=== PATIENT | female | born 1975 | race Caucasian/White ===

== ENCOUNTER → 2024-01-03 | Outpatient (CLI) | payer MEDICAID, SELFPAY ==
--- NOTE | 2024-01-03 09:44 | XR_ITS ---
Examination: PA lateral chest 2 views TECHNIQUE: Upright PA lateral chest 2 views Exam date and time: January 03, 2024 0952 hours Comparison October 06, 2015 INDICATIONS: Clinical diagnosis coccidiomycosis FINDINGS: Normal heart size Lungs are clear Moderate osteopenia IMPRESSION: No active disease
== END | disposition home or self-care (01) ==
PROVIDERS: PCP Physician Assistant Medical; Referring Provider Physician Assistant; Visit Provider Physician Assistant
DX: Z86.19 Personal history of other infectious and parasitic diseases (principal)
CPT/HCPCS: 71046

== ENCOUNTER 2024-01-13 09:03 | Outpatient (AMB) | payer MEDICAID, SELFPAY ==
[2024-01-13 09:42] VITALS: BP 116/81; PULSE 72; RESP 18; TEMP 36.3; O2SAT 96; BMI 38.2
--- NOTE | 2024-01-13 09:42 | PD.ORTHCLVIS ---
Vital signs 01/13/24 09:42 Height 1.63 m Height Method Stated Weight 101.661 kg Weight Measurement Method Standing Scale BMI 38.2 BP 116/81 Blood Pressure Source Automatic Cuff Blood Pressure Location Right Upper Arm Position Sitting Respiration 18 Pulse 72 Pulse Source Monitor Temp 97.4 F Temp Source Temporal Artery Scan Pulse Oximetry (%) 96 Oxygen Delivery Method Room Air Med/Allergies Allergies & Medications Allergies coffee (Coffea arabica) Allergy (Intermediate, Verified 01/13/24 09:45) Gastrointestinal Upset furosemide [From Lasix] Allergy (Intermediate, Verified 01/13/24 09:45) Hypertension milk Allergy (Intermediate, Verified 01/13/24 09:45) Gastrointestinal Upset nitrofurantoin Allergy (Mild, Verified 01/13/24 09:45) VOMIT,LOC BACTRIM Allergy (Uncoded 01/13/24 09:45) Medication Reconciliation diphenhydramine HCl 50 mg capsule 50 mg PO QID #20 caps 11/07/18 [Rx Confirmed 01/13/24] famotidine 20 mg tablet (Pepcid) 20 mg PO BID #10 tabs 11/07/18 [Rx Confirmed 01/13/24] methylprednisolone 4 mg tablets in a dose pack (Medrol (Guido)) 4 mg PO QDAY #21 tabs 11/07/18 [Rx Confirmed 01/13/24] semaglutide 0.25 mg or 0.5 mg (2 mg/3 mL) subcutaneous pen injector (Ozempic) 0.25 mg subcut QWEEK 09/09/23 [History Confirmed 01/13/24] Subjective Visit Visit for: follow up visit, knee and injections Immunization / Flu Flu Vaccine in the Last 12 Months: No Flu Vaccine Exclusion Criteria: No Exclusion Criteria History of Present Illness Chief complaint: F/U KNEE INJECTIONS Date of 1st surgery (if applicable): MAY 2021 Christel is a pleasant 48-year-old female with bilateral knee pain worse on the right. She has a history of rheumatoid arthritis on Enbrel and methotrexate. She has had right knee pain for over 3 years. She did have a prior meniscectomy in May 2021. She was told she was [id number] at that time. She has lost 60 pounds recently. She is also been injected every 3 months with cortisone for the last several years. The last injection was 3 months ago Personal History Occupation: UNEMPLOYED Hobbies: GYM Pain Pain level (0-10): 6 Pain duration: ALL DAY Pain location: inside (medial), outside (lateral), anterior and posterior Pain quality: sharp, dull and aching Pain timing: increases with activity Associated signs & symptoms: weakness Ambulatory data Ambulatory device: none Treatments Number of previous injections: 3 Improvement with previous injections: Yes Improvement with PT: No Improvement with NSAIDS: no Review of Systems Review of Systems: All systems negative unless otherwise noted in HPI. Exam Exam Patient is in no acute distress and is cooperative with the examination today. Breathing is nonlabored. In no respiratory distress. Bilateral extremities were evaluated and demonstrates sensation intact to light touch. Palpable pedal pulses are present. No significant edema is present. Bilateral hips were examined. The patient has no pain with log roll of the hips. Internal rotation to 30 degrees and external rotation to 30 degrees is painless. Negative FADIR. The left knee was examined. The left knee is in [varus] alignment. Range of motion from [0-115] degrees. Knee is stable to varus and valgus as well as AP translation with <5mm. Patient has a [negative] McMurrays. There is [no] pain with patellofemoral compression and [no] crepitus noted. The knee is [tender] to palpation [medially]. The right knee was also examined. The right knee is in [varus] alignment. Range of motion from [0-120] degrees. Knee is stable to varus and valgus as well as AP translation with <5mm. Patient has a [negative] McMurrays. There is [no] pain with patellofemoral compression and [no] crepitus noted. The knee is [tender] to palpation [medially]. Bilateral knee x-rays were reviewed. This demonstrates severe arthritis on the right side. There is valgus arthritis and complete joint space loss laterally Assessment and Plan Problem List (1) Bilateral primary osteoarthritis of knee: Status: Acute Plan: Christel is a pleasant 48-year-old female with bilateral knee pain. She does have history of rheumatoid arthritis. Recommend knee cortisone injection as patient would like to proceed with conservative treatment at this time. The risks and benefits of the procedure were reviewed with the patient and patient gave verbal consent to continue with the procedure. Procedure: performed by Dr. Hurtado Using sterile technique the Right knee was thoroughly prepped with alcohol, and approximately 1 cc of Kenalog 40 mg/mL and 4 cc of 1% lidocaine was injected without resistance into the medial tibial femoral joint space. The patient tolerated the procedure. Office Procedures GNS Level of Care Nursing/Assessment Patient Status: Established Patient Nursing Assessment/Reassesment: Medication Reconciliation, Update PMH in EMR and Vital Signs Coordination of Care: Complex Care and Chronic Disease 1-5, Education Complex Pt/Fam, Consent,records obtained, informed consent, Results/Orders obtained and Staff clarify orders Established Patient Charge Established Patient Point Assignment: 95 Established Patient Point Charge: EP Level 3 (80-115) Surgical Proc/IM SQ injection Major Surgical Procedure: Yes Medication Given Medication Given Medication Given: Yes Documented Dose Given: 4 Route: Infiitration Medication Given Medication Given Medication Given: Yes Documented Dose Given: 1 Route: Infiitration Office Meds Xylocaine 10 mg/mL (1 %) injection solution Performing Provider: Norm Hurtado MD Performing Location: [facility] Administered by: Norm Hurtado MD on 01/13/24 12:07 Dose Route Admin Location Dispensed Lot Number Expiration Date [facility] Ticket Machine Operator 20 mL Infiltration 20 mL triamcinolone acetonide 40 mg/mL suspension for injection Performing Provider: Norm Hurtado MD Performing Location: [facility] Administered by: Norm Hurtado MD on 01/13/24 12:07 Dose Route Admin Location Dispensed Lot Number Expiration Date [place] Ticket Machine Operator 40 mg intra-articular 1 mL [id number] [employer] Past Medical History Past Medical History Have you ever been diagnosed with any of the following: Cardiology Problems Congestive Heart Failure: No Respiratory Problems Chronic Obstructive Pulmonary Disease (COPD): No Smoking: No Smoking Exposure: No Genital/Urinary Problems Renal Disease: No Endocrine Problems Diabetes Mellitus Type 1: No Diabetes Mellitus Type 2: No
== END 2024-01-13 10:25 | disposition home or self-care (01) ==
PROVIDERS: PCP Physician Assistant Medical; Referring Provider Physician Assistant Medical; Supervising Provider Orthopaedic Surgery Adult Reconstructive Orthopaedic Surgery; Visit Provider Orthopaedic Surgery Adult Reconstructive Orthopaedic Surgery
DX: M17.0 Bilateral primary osteoarthritis of knee (principal)
CPT/HCPCS: 20610; 99213; J3301; J3490; G0463

== ENCOUNTER 2024-04-13 09:08 | Outpatient (AMB) | payer MEDICAID, SELFPAY ==
--- NOTE | 2024-04-13 09:13 | ORTHONT_ITS ---
Vital signs 04/13/24 09:15 Height 1.63 m Height Method Stated Weight 106.311 kg Weight Measurement Method Standing Scale BMI 40.0 BP 110/78 Blood Pressure Source Automatic Cuff Blood Pressure Location Left Upper Arm Position Sitting Respiration 18 Pulse 94 Pulse Source Monitor Temp 97.6 F Temp Source Temporal Artery Scan Pulse Oximetry (%) 96 Oxygen Delivery Method Room Air Med/Allergies Allergies & Medications Allergies coffee (Coffea arabica) Allergy (Intermediate, Verified 04/13/24 09:15) Gastrointestinal Upset furosemide (From Lasix) Allergy (Intermediate, Verified 04/13/24 09:15) Hypertension milk Allergy (Intermediate, Verified 04/13/24 09:15) Gastrointestinal Upset nitrofurantoin Allergy (Mild, Verified 04/13/24 09:15) VOMIT,LOC BACTRIM Allergy (Uncoded 04/13/24 09:15) Medication Reconciliation diphenhydramine HCl 50 mg capsule 50 mg PO QID #20 caps 11/07/18 [Rx Confirmed 04/13/24] famotidine 20 mg tablet (Pepcid) 20 mg PO BID #10 tabs 11/07/18 [Rx Confirmed 04/13/24] methylprednisolone 4 mg tablets in a dose pack (Medrol (Guido)) 4 mg PO QDAY #21 tabs 11/07/18 [Rx Confirmed 04/13/24] semaglutide 0.25 mg or 0.5 mg (2 mg/3 mL) subcutaneous pen injector (Ozempic) 0.25 mg subcut QWEEK 09/09/23 [History Confirmed 04/13/24] Exam Exam Patient is in no acute distress and is cooperative with the examination today. Breathing is nonlabored. In no respiratory distress. Bilateral extremities were evaluated and demonstrates sensation intact to light touch. Palpable pedal pulses are present. No significant edema is present. Bilateral hips were examined. The patient has no pain with log roll of the hips. Internal rotation to 30 degrees and external rotation to 30 degrees is painless. Negative FADIR. The left knee was examined. The left knee is in [varus] alignment. Range of motion from [0-115] degrees. Knee is stable to varus and valgus as well as AP translation with <5mm. Patient has a [negative] McMurrays. There is [no] pain with patellofemoral compression and [no] crepitus noted. The knee is [tender] to palpation [medially]. The right knee was also examined. The right knee is in [varus] alignment. Range of motion from [0-120] degrees. Knee is stable to varus and valgus as well as AP translation with <5mm. Patient has a [negative] McMurrays. There is [no] pain with patellofemoral compression and [no] crepitus noted. The knee is [tender] to palpation [medially]. Bilateral knee x-rays were reviewed. This demonstrates severe arthritis on the right side. There is valgus arthritis and complete joint space loss laterally Assessment and Plan Problem List (1) Bilateral primary osteoarthritis of knee: Status: Acute Plan: Christel is a pleasant 48-year-old female with bilateral knee pain. She does have history of rheumatoid arthritis. Recommend knee cortisone injection as patient would like to proceed with conservative treatment at this time. The risks and benefits of the procedure were reviewed with the patient and patient gave verbal consent to continue with the procedure. Procedure: performed by Dr. Hurtado Using sterile technique the Right knee was thoroughly prepped with alcohol, and approximately 1 cc of Kenalog 40 mg/mL and 4 cc of 1% lidocaine was injected without resistance into the medial tibial femoral joint space. The patient tolerated the procedure. Office Procedures GNS Level of Care Nursing/Assessment Patient Status: Established Patient Nursing Assessment/Reassesment: Medication Reconciliation, Update PMH in EMR and Vital Signs Coordination of Care: Complex Care and Chronic Disease 1-5, Education Complex Pt/Fam, Consent,records obtained, informed consent, Results/Orders obtained and Staff clarify orders Established Patient Charge Established Patient Point Assignment: 95 Established Patient Point Charge: EP Level 3 (80-115) Surgical Proc/IM SQ injection Major Surgical Procedure: Yes (KNEE INJECTION) Medication Given Medication Given Medication Given: Yes Documented Dose Given: 4 Route: Infiitration Office Meds Xylocaine 10 mg/mL (1 %) injection solution Performing Provider: Norm Hurtado MD Performing Location: [facility] Administered by: Norm Hurtado MD on 04/13/24 09:33 Dose Route Admin Location Dispensed Lot Number Expiration Date [facility] Manager Game 20 mL Infiltration 20 mL [id number] 08/07/27 79647-497-55 [facility] triamcinolone acetonide 40 mg/mL suspension for injection Performing Provider: Norm Hurtado MD Performing Location: [facility] Administered by: Norm Hurtado MD on 04/13/24 09:33 Dose Route Admin Location Dispensed Lot Number Expiration Date [facility] Manager Game 40 mg Infiltration KNEE 1 mL [id number] 07/06/25 4783-6679-06 [employer] MA Intake Visit Data Collection New Patient or Established: Established Patient (seen at [facility] within 3 years) Reason for Visit:: 3 MTH F/U RIGHT KNEE INJ Seen by Clinical Staff ONLY (RN/MA): No Verbal consent obtained for Telemed visit?: No Amusement Machine Mechanic Required: No PCP or OBGYN visit in last 3 months: Yes Hx Now: No Do You Feel Safe at Home: Yes Authorities Contacted: N/A Questionairres Past Medical History Past Medical History Have you ever been diagnosed with any of the following: Cardiology Problems Congestive Heart Failure: No Respiratory Problems Chronic Obstructive Pulmonary Disease (COPD): No Smoking: No Smoking Exposure: No Genital/Urinary Problems Renal Disease: No Endocrine Problems Diabetes Mellitus Type 1: No Diabetes Mellitus Type 2: No Subjective Visit Visit for: follow up visit, knee (RIGHT) and injections Immunization / Flu Flu Vaccine in the Last 12 Months: No Flu Vaccine Exclusion Criteria: No Exclusion Criteria History of Present Illness Chief complaint: Right knee pain Patient is a 49-year-old female with bilateral knee pain worse on the right. The last injections of 1 was 3 weeks ago. She would like new injections today of the right knee Pain Pain level (0-10): 7 Pain duration: COMES AND GOES Pain location: inside (medial) and anterior Pain quality: dull and aching Pain timing: increases with activity Ambulatory data Ambulatory device: none Treatments Improvement with previous injections: Yes Improvement with PT: No Improvement with NSAIDS: no Review of Systems Review of Systems: All systems negative unless otherwise noted in HPI.
--- NOTE | 2024-04-13 09:13 | ORTHONT_ITS ---
Vital signs 04/13/24 09:15 Height 1.63 m Height Method Stated Weight 106.311 kg Weight Measurement Method Standing Scale BMI 40.0 BP 110/78 Blood Pressure Source Automatic Cuff Blood Pressure Location Left Upper Arm Position Sitting Respiration 18 Pulse 94 Pulse Source Monitor Temp 97.6 F Temp Source Temporal Artery Scan Pulse Oximetry (%) 96 Oxygen Delivery Method Room Air Med/Allergies Allergies & Medications Allergies coffee (Coffea arabica) Allergy (Intermediate, Verified 04/13/24 09:15) Gastrointestinal Upset furosemide (From Lasix) Allergy (Intermediate, Verified 04/13/24 09:15) Hypertension milk Allergy (Intermediate, Verified 04/13/24 09:15) Gastrointestinal Upset nitrofurantoin Allergy (Mild, Verified 04/13/24 09:15) VOMIT,LOC BACTRIM Allergy (Uncoded 04/13/24 09:15) Medication Reconciliation diphenhydramine HCl 50 mg capsule 50 mg PO QID #20 caps 11/07/18 [Rx Confirmed 04/13/24] famotidine 20 mg tablet (Pepcid) 20 mg PO BID #10 tabs 11/07/18 [Rx Confirmed 04/13/24] methylprednisolone 4 mg tablets in a dose pack (Medrol (Guido)) 4 mg PO QDAY #21 tabs 11/07/18 [Rx Confirmed 04/13/24] semaglutide 0.25 mg or 0.5 mg (2 mg/3 mL) subcutaneous pen injector (Ozempic) 0.25 mg subcut QWEEK 09/09/23 [History Confirmed 04/13/24] Exam Exam Patient is in no acute distress and is cooperative with the examination today. Breathing is nonlabored. In no respiratory distress. Bilateral extremities were evaluated and demonstrates sensation intact to light touch. Palpable pedal pulses are present. No significant edema is present. Bilateral hips were examined. The patient has no pain with log roll of the hips. Internal rotation to 30 degrees and external rotation to 30 degrees is painless. Negative FADIR. The left knee was examined. The left knee is in [varus] alignment. Range of motion from [0-115] degrees. Knee is stable to varus and valgus as well as AP translation with <5mm. Patient has a [negative] McMurrays. There is [no] pain with patellofemoral compression and [no] crepitus noted. The knee is [tender] to palpation [medially]. The right knee was also examined. The right knee is in [varus] alignment. Range of motion from [0-120] degrees. Knee is stable to varus and valgus as well as AP translation with <5mm. Patient has a [negative] McMurrays. There is [no] pain with patellofemoral compression and [no] crepitus noted. The knee is [tender] to palpation [medially]. Bilateral knee x-rays were reviewed. This demonstrates severe arthritis on the right side. There is valgus arthritis and complete joint space loss laterally Assessment and Plan Problem List (1) Bilateral primary osteoarthritis of knee: Status: Acute Plan: Christel is a pleasant 48-year-old female with bilateral knee pain. She does have history of rheumatoid arthritis. Recommend knee cortisone injection as patient would like to proceed with conservative treatment at this time. The risks and benefits of the procedure were reviewed with the patient and patient gave verbal consent to continue with the procedure. Procedure: performed by Dr. Hurtado Using sterile technique the Right knee was thoroughly prepped with alcohol, and approximately 1 cc of Kenalog 40 mg/mL and 4 cc of 1% lidocaine was injected without resistance into the medial tibial femoral joint space. The patient tolerated the procedure. Office Procedures GNS Level of Care Nursing/Assessment Patient Status: Established Patient Nursing Assessment/Reassesment: Medication Reconciliation, Update PMH in EMR and Vital Signs Coordination of Care: Complex Care and Chronic Disease 1-5, Education Complex Pt/Fam, Consent,records obtained, informed consent, Results/Orders obtained and Staff clarify orders Established Patient Charge Established Patient Point Assignment: 95 Established Patient Point Charge: EP Level 3 (80-115) Surgical Proc/IM SQ injection Major Surgical Procedure: Yes (KNEE INJECTION) Medication Given Medication Given Medication Given: Yes Documented Dose Given: 4 Route: Infiitration Office Meds Xylocaine 10 mg/mL (1 %) injection solution Performing Provider: Norm Hurtado MD Performing Location: [facility] Administered by: Norm Hurtado MD on 04/13/24 09:33 Dose Route Admin Location Dispensed Lot Number Expiration Date [facility] Communications Scientist 20 mL Infiltration 20 mL [id number] 08/07/27 83587-881-84 [facility] triamcinolone acetonide 40 mg/mL suspension for injection Performing Provider: Norm Hurtado MD Performing Location: [facility] Administered by: Norm Hurtado MD on 04/13/24 09:33 Dose Route Admin Location Dispensed Lot Number Expiration Date [facility] Communications Scientist 40 mg Infiltration KNEE 1 mL [id number] 07/06/25 1360-5997-90 [employer] Questionairres Past Medical History Past Medical History Have you ever been diagnosed with any of the following: Cardiology Problems Congestive Heart Failure: No Respiratory Problems Chronic Obstructive Pulmonary Disease (COPD): No Smoking: No Smoking Exposure: No Genital/Urinary Problems Renal Disease: No Endocrine Problems Diabetes Mellitus Type 1: No Diabetes Mellitus Type 2: No Subjective Immunization / Flu Flu Vaccine in the Last 12 Months: Yes Flu Vaccine Exclusion Criteria: Already Received History of Present Illness Chief complaint: Right knee pain Patient is a 49-year-old female with bilateral knee pain worse on the right. The last injections of 1 was 3 weeks ago. She would like new injections today of the right knee Review of Systems Review of Systems: All systems negative unless otherwise noted in HPI.
[2024-04-13 09:15] VITALS: BP 110/78; PULSE 94; RESP 18; TEMP 36.4; O2SAT 96; BMI 40.0
== END 2024-04-13 09:25 | disposition home or self-care (01) ==
LOC: HODSRG 09:08
PROVIDERS: PCP Physician Assistant Medical; Referring Provider Physician Assistant Medical; Supervising Provider Orthopaedic Surgery Adult Reconstructive Orthopaedic Surgery; Visit Provider Orthopaedic Surgery Adult Reconstructive Orthopaedic Surgery
DX: M25.561 Pain in right knee (principal); M17.0 Bilateral primary osteoarthritis of knee; M25.562 Pain in left knee
CPT/HCPCS: 20610; 99213; J3301; J3490; G0463

== ENCOUNTER 2024-07-17 08:48 | Outpatient (AMB) | payer MEDICAID, SELFPAY ==
[2024-07-17 08:57] VITALS: BP 116/80; PULSE 89; RESP 18; TEMP 36.8; O2SAT 99; BMI 40.0
--- NOTE | 2024-07-17 08:57 | ORTHONT_ITS ---
Vital signs 07/17/24 08:57 Height 1.63 m Height Method Stated Weight 106.339 kg Weight Measurement Method Standing Scale BMI 40.0 BP 116/80 Blood Pressure Source Automatic Cuff Blood Pressure Location Right Upper Arm Position Sitting Respiration 18 Pulse 89 Pulse Source Monitor Temp 98.2 F Temp Source Temporal Artery Scan Pulse Oximetry (%) 99 Oxygen Delivery Method Room Air Med/Allergies Allergies & Medications Allergies coffee (Coffea arabica) Allergy (Intermediate, Verified 07/17/24 08:57) Gastrointestinal Upset furosemide (From Lasix) Allergy (Intermediate, Verified 07/17/24 08:57) Hypertension milk Allergy (Intermediate, Verified 07/17/24 08:57) Gastrointestinal Upset nitrofurantoin Allergy (Mild, Verified 07/17/24 08:57) VOMIT,LOC BACTRIM Allergy (Uncoded 07/17/24 08:57) Medication Reconciliation diphenhydramine HCl 50 mg capsule 50 mg PO QID #20 caps 11/07/18 [Rx Confirmed 07/17/24] famotidine 20 mg tablet (Pepcid) 20 mg PO BID #10 tabs 11/07/18 [Rx Confirmed ] methylprednisolone 4 mg tablets in a dose pack (Medrol (Guido)) 4 mg PO QDAY #21 tabs 11/07/18 [Rx Confirmed 07/17/24] semaglutide 0.25 mg or 0.5 mg (2 mg/3 mL) subcutaneous pen injector (Ozempic) 0.25 mg subcut QWEEK 09/09/23 [History Confirmed 07/17/24] Exam Exam Patient is in no acute distress and is cooperative with the examination today. Breathing is nonlabored. In no respiratory distress. Bilateral extremities were evaluated and demonstrates sensation intact to light touch. Palpable pedal pulses are present. No significant edema is present. Bilateral hips were examined. The patient has no pain with log roll of the hips. Internal rotation to 30 degrees and external rotation to 30 degrees is painless. Negative FADIR. The left knee was examined. The left knee is in [varus] alignment. Range of motion from [0-115] degrees. Knee is stable to varus and valgus as well as AP translation with <5mm. Patient has a [negative] McMurrays. There is [no] pain with patellofemoral compression and [no] crepitus noted. The knee is [tender] to palpation [medially]. The right knee was also examined. The right knee is in [varus] alignment. Range of motion from [0-120] degrees. Knee is stable to varus and valgus as well as AP translation with <5mm. Patient has a [negative] McMurrays. There is [no] pain with patellofemoral compression and [no] crepitus noted. The knee is [tender] to palpation [medially]. Bilateral knee x-rays were reviewed. This demonstrates severe arthritis on the right side. There is valgus arthritis and complete joint space loss laterally Assessment and Plan Problem List (1) Bilateral primary osteoarthritis of knee: Status: Acute Plan: Christel is a pleasant 48-year-old female with bilateral knee pain. She does have history of rheumatoid arthritis. Recommend knee cortisone injection as patient would like to proceed with conservative treatment at this time. The risks and benefits of the procedure were reviewed with the patient and patient gave verbal consent to continue with the procedure. Procedure: performed by Dr. Hurtado Using sterile technique the Right knee was thoroughly prepped with alcohol, and approximately 1 cc of Kenalog 40 mg/mL and 4 cc of 1% lidocaine was injected without resistance into the medial tibial femoral joint space. The patient tolerated the procedure. Office Procedures GNS Level of Care Nursing/Assessment Patient Status: Established Patient Nursing Assessment/Reassesment: Medication Reconciliation, Update PMH in EMR and Vital Signs Coordination of Care: Complex Care and Chronic Disease 1-5, Education Complex Pt/Fam, Consent,records obtained, informed consent, Results/Orders obtained and Staff clarify orders Established Patient Charge Established Patient Point Assignment: 95 Established Patient Point Charge: EP Level 3 (80-115) Surgical Proc/IM SQ injection Major Surgical Procedure: Yes (KNEE INJECTION ) Medication Given Medication Given Medication Given: Yes Documented Dose Given: 4 Route: Infiitration Medication Given Medication Given Medication Given: Yes Documented Dose Given: 1 Route: Infiitration Office Meds Xylocaine 10 mg/mL (1 %) injection solution Performing Provider: Norm Hurtado MD Performing Location: [facility] Administered by: Norm Hurtado MD on 07/17/24 09:24 Dose Route Admin Location Dispensed Lot Number Expiration Date [facility] [place] Safety Assistant 20 mL Infiltration KNEE 20 mL [id number] 05/09/27 67476-741-96 MICHAEL ROBLEDO triamcinolone acetonide 40 mg/mL suspension for injection Performing Provider: Norm Hurtado MD Performing Location: [facility] Administered by: Norm Hurtado MD on 07/17/24 09:24 Dose Route Admin Location Dispensed Lot Number Expiration Date [employer] Safety Assistant 40 mg intra-articular KNEE 1 mL [id number] 08/07/25 30228-626-03 ALIX SEGOVIA MA Intake Visit Data Collection New Patient or Established: Established Patient (seen at [facility] within 3 years) Reason for Visit:: 3 MONTH KNEE INJECTION Seen by Clinical Staff ONLY (RN/MA): No Verbal consent obtained for Telemed visit?: No Director Title Required: No PCP or OBGYN visit in last 3 months: Yes Hx Now: No Do You Feel Safe at Home: Yes Authorities Contacted: N/A Questionairres Past Medical History Past Medical History Have you ever been diagnosed with any of the following: Cardiology Problems Congestive Heart Failure: No Respiratory Problems Chronic Obstructive Pulmonary Disease (COPD): No Smoking: No Smoking Exposure: No Genital/Urinary Problems Renal Disease: No Endocrine Problems Diabetes Mellitus Type 1: No Diabetes Mellitus Type 2: No Subjective Visit Visit for: follow up visit, knee and injections Immunization / Flu Flu Vaccine in the Last 12 Months: No Flu Vaccine Exclusion Criteria: No Exclusion Criteria History of Present Illness Chief complaint: 3 MONTH F/U KNEE INJECTION Patient is a 49-year-old female with bilateral knee pain worse on the right. The last injection was 3 months ago. She would like new injections today of the right knee Personal History Red flag PMH: BMI BMI Counceling provided: Yes Pain Pain level (0-10): 7 Pain duration: ALL DAY Pain location: outside (lateral), anterior and posterior Pain quality: sharp, dull and aching Pain timing: increases with activity Associated signs & symptoms: numbness and stiffness Ambulatory data Ambulatory device: none Treatments Improvement with previous injections: Yes Improvement with PT: No Improvement with NSAIDS: no Review of Systems Review of Systems: All systems negative unless otherwise noted in HPI.
== END 2024-07-17 09:23 | disposition home or self-care (01) ==
LOC: HODSRG 08:48
PROVIDERS: PCP Physician Assistant Medical; Referring Provider Physician Assistant Medical; Supervising Provider Orthopaedic Surgery Adult Reconstructive Orthopaedic Surgery; Visit Provider Orthopaedic Surgery Adult Reconstructive Orthopaedic Surgery
DX: M17.0 Bilateral primary osteoarthritis of knee (principal); M25.562 Pain in left knee; M25.561 Pain in right knee
CPT/HCPCS: 20610; 99213; J3301; J3490; G0463

== ENCOUNTER 2024-10-16 13:45 | Outpatient (AMB) | payer MEDICAID, SELFPAY ==
[2024-10-16 14:03] VITALS: BP 108/23; PULSE 79; RESP 18; TEMP 36.6; O2SAT 97; BMI 38.9
--- NOTE | 2024-10-16 14:03 | ORTHONT_ITS ---
Vital signs 10/16/24 14:03 Height 1.63 m Height Method Stated Weight 103.476 kg Weight Measurement Method Standing Scale BMI 38.9 BP 108/23 L Blood Pressure Source Automatic Cuff Blood Pressure Location Right Upper Arm Position Sitting Respiration 18 Pulse 79 Pulse Source Monitor Temp 97.8 F Temp Source Temporal Artery Scan Pulse Oximetry (%) 97 Oxygen Delivery Method Room Air Med/Allergies Allergies & Medications Allergies coffee (Coffea arabica) Allergy (Intermediate, Verified 10/16/24 14:03) Gastrointestinal Upset furosemide (From Lasix) Allergy (Intermediate, Verified 10/16/24 14:03) Hypertension milk Allergy (Intermediate, Verified 10/16/24 14:03) Gastrointestinal Upset nitrofurantoin Allergy (Mild, Verified 10/16/24 14:03) VOMIT,LOC BACTRIM Allergy (Uncoded 10/16/24 14:03) Medication Reconciliation diphenhydramine HCl 50 mg capsule 50 mg PO QID #20 caps 11/07/18 [Rx Confirmed 10/16/24] famotidine 20 mg tablet (Pepcid) 20 mg PO BID #10 tabs 11/07/18 [Rx Confirmed 10/16/24] methylprednisolone 4 mg tablets in a dose pack (Medrol (Guido)) 4 mg PO QDAY #21 tabs 11/07/18 [Rx Confirmed 10/16/24] semaglutide 0.25 mg or 0.5 mg (2 mg/3 mL) subcutaneous pen injector (Ozempic) 0.25 mg subcut QWEEK 09/09/23 [History Confirmed 10/16/24] Exam Exam Patient is in no acute distress and is cooperative with the examination today. Breathing is nonlabored. In no respiratory distress. Bilateral extremities were evaluated and demonstrates sensation intact to light touch. Palpable pedal pulses are present. No significant edema is present. Bilateral hips were examined. The patient has no pain with log roll of the hips. Internal rotation to 30 degrees and external rotation to 30 degrees is painless. Negative FADIR. The left knee was examined. The left knee is in [varus] alignment. Range of motion from [0-115] degrees. Knee is stable to varus and valgus as well as AP translation with <5mm. Patient has a [negative] McMurrays. There is [no] pain with patellofemoral compression and [no] crepitus noted. The knee is [tender] to palpation [medially]. The right knee was also examined. The right knee is in [varus] alignment. Range of motion from [0-120] degrees. Knee is stable to varus and valgus as well as AP translation with <5mm. Patient has a [negative] McMurrays. There is [no] pain with patellofemoral compression and [no] crepitus noted. The knee is [tender] to palpation [medially]. Bilateral knee x-rays were reviewed. This demonstrates severe arthritis on the right side. There is valgus arthritis and complete joint space loss laterally Assessment and Plan Problem List (1) Bilateral primary osteoarthritis of knee: Status: Acute Plan: Christel is a pleasant 49-year-old female with bilateral knee pain. She does have history of rheumatoid arthritis. For the right knee, she has failed conservative treatment and has severe valgus arthritis. We thus discussed total knee replacement as a reasonable option. For the left side, she would like a cortisone injection. She has had over 6 injections and has failed conservative treatment and thus we will proceed with a right total knee replacement Recommend knee cortisone injection as patient would like to proceed with conservative treatment at this time. The risks and benefits of the procedure were reviewed with the patient and patient gave verbal consent to continue with the procedure. Procedure: performed by Dr. Hurtado Using sterile technique the left knee was thoroughly prepped with alcohol, and approximately 1 cc of Depo-Medrol 80mg/mL and 4 cc of 0.2% ropivacaine was injected without resistance into the medial tibial femoral joint space. The patient tolerated the procedure. The nature and purpose of the total knee replacement, alternative method(s) of treatment, the material risks involved, and the possibility of complications were fully explained to the patient. The patient does NOT have any of the following contraindications to TKA: - Active infection of the knee joint, OR - Active systemic bacteremia, OR - Active skin infection or open wound at surgical site, OR - Neuropathic arthritis, OR - Severe, rapidly progressive neurological disease, OR - Severe medical condition that makes risks of surgery outweigh the potential benefit The patient was told the most common risks and complications associated with a total knee replacement include, but are not limited to: blood clots in the leg, fatal pulmonary embolism, dislocation of the prosthesis, intraoperative and postoperative fractures of the femur or tibia, infection, failure of the prosthesis or grafting materials, complications from anesthesia, reactions to blood transfusions, postoperative leg length inequality, instability of the knee replacement, nerve damage or injury, vascular injury, delayed wound healing, infection, other injury or even . In addition, there are risks associated with anesthesia given during this operation. Also, the patient was told that after undergoing a total knee replacement there may still be persistent pain or disability. The patient was informed that the success of this operation in part depends upon the mechanical devices which are going to be implanted and that these devices can fail or malfunction, and may need to be repaired or replaced and there are no guarantees as to the longevity of this device or its parts and that it or its parts could fail prematurely. The patient was also notified that during the course of surgery, there may be a need to use bone graft from donors, and that any bone graft used will be carefully screened for communicable diseases, including AIDS, hepatitis, Abdi-Creutzfeldt, or other diseases, but despite the screening procedures, there is a small chance that they could contract one of these diseases. Finally, the patient was asked to follow completely and fully with all advice and recommended treatments, and that recovery and ultimate outcome are affected by their compliance with recommended treatment. We discussed the risks, benefits and treatment alternatives, and the patient is interested in proceeding with surgery. We will try to set this up as expeditiously as possible. Office Procedures GNS Level of Care Nursing/Assessment Patient Status: Established Patient Nursing Assessment/Reassesment: Medication Reconciliation, Update PMH in EMR and Vital Signs Coordination of Care: Complex Care and Chronic Disease 1-5, Education Complex Pt/Fam, Consent,records obtained, informed consent, Results/Orders obtained and Staff clarify orders Established Patient Charge Established Patient Point Assignment: 95 Established Patient Point Charge: EP Level 3 (80-115) Surgical Proc/IM SQ injection Major Surgical Procedure: Yes (KNEE INJECTION) Medication Given Medication Given Medication Given: Yes Documented Dose Given: 1 Route: Infiitration Medication Given Medication Given Medication Given: Yes Documented Dose Given: 4 Route: Infiitration Office Meds methylprednisolone acetate 80 mg/mL suspension for injection Performing Provider: Norm Hurtado MD Performing Location: [facility] Administered by: Norm Hurtado MD on 10/16/24 15:33 Dose Route Admin Location Dispensed Lot Number Expiration Date Pack age [facility] Security Escort 80 mg intra-articular 1 mL [id number] 07/06/26 [address]-3 7 [id number] [employer] ropivacaine (PF) 2 mg/mL (0.2 %) injection solution Performing Provider: Norm Hurtado MD Performing Location: [facility] Administered by: Norm Hurtado MD on 10/16/24 15:33 Dose Route Admin Location Dispensed Lot Number Expiration Date Pack age [facility] Security Escort 20 mL Infiltration 20 mL [id number] 03/08/27 41328-383-50 [id number] [facility] Intake Visit Data Collection New Patient or Established: Established Patient (seen at [facility] within 3 years) Reason for Visit:: 3 MONTH KNEE INJECTIONS Seen by Clinical Staff ONLY (RN/MA): No Verbal consent obtained for Telemed visit?: No Spring Former Machine Required: No PCP or OBGYN visit in last 3 months: Yes Hx Now: No Do You Feel Safe at Home: Yes Authorities Contacted: N/A Questionairres Past Medical History Past Medical History Have you ever been diagnosed with any of the following: Cardiology Problems Congestive Heart Failure: No Respiratory Problems Chronic Obstructive Pulmonary Disease (COPD): No Smoking: No Smoking Exposure: No Genital/Urinary Problems Renal Disease: No Endocrine Problems Diabetes Mellitus Type 1: No Diabetes Mellitus Type 2: No Subjective Visit Visit for: follow up visit and injections Immunization / Flu Flu Vaccine in the Last 12 Months: No Flu Vaccine Exclusion Criteria: Already Received History of Present Illness Chief complaint: 3 MONTH KNEE INJECTIONS Patient is a 49-year-old female with bilateral knee pain worse on the right. She has a history of rheumatoid arthritis the last injection was 3 months ago. She would like new injections today of the left knee. She reports the right knee has significantly progressed. She would like to get this replaced. The last injections are no longer working. She has had multiple injections in the past including over 6 as well as physical therapy and anti-inflammatories. She has lost over 40 pounds. She is on Rinvoq for her rheumatology meds Personal History Red flag PMH: BMI BMI Counceling provided: Yes Pain Pain level (0-10): 3 Pain duration: CONSTANT Pain location: inside (medial), outside (lateral) and anterior Pain quality: sharp, dull and aching Pain timing: increases with activity Associated signs & symptoms: none Ambulatory data Ambulatory device: none Treatments Improvement with previous injections: No Improvement with PT: No Improvement with NSAIDS: no Review of Systems Review of Systems: All systems negative unless otherwise noted in HPI.
--- NOTE | 2024-10-16 14:10 | XR_ITS ---
Examination: Bilateral knees 2 views Right lateral knee left lateral knee 2 views Bilateral axial knees single view TECHNIQUE: Bilateral AP knees standing single view, bilateral PA knees standing single view flexion Standing right lateral knee left lateral knee 2 views Bilateral axial knees single view Date and time: October 13, 2024, 1417 hours INDICATIONS: Bilateral knee pain beginning 4 years ago. FINDINGS: Advanced narrowing lateral joint space right knee Moderate to advanced osteoarthritis right patellofemoral joint No fracture Moderate osteoarthritis medial lateral joint spaces left knee Moderate osteoarthritis left patellofemoral joint IMPRESSION: Advanced narrowing lateral joint space right knee Moderate to advanced osteoarthritis right patellofemoral joint Moderate osteoarthritis medial lateral patellofemoral joints left knee
== END 2024-10-16 14:15 | disposition home or self-care (01) ==
LOC: HODSRG 13:45
PROVIDERS: PCP Physician Assistant Medical; Referring Provider Physician Assistant Medical; Supervising Provider Orthopaedic Surgery Adult Reconstructive Orthopaedic Surgery; Visit Provider Orthopaedic Surgery Adult Reconstructive Orthopaedic Surgery
DX: M17.0 Bilateral primary osteoarthritis of knee (principal); M25.562 Pain in left knee; M25.561 Pain in right knee; M21.061 Valgus deformity, not elsewhere classified, right knee
CPT/HCPCS: 20610; 73564; 99213; J1010; J2795; G0463

== ENCOUNTER → 2024-11-16 | Outpatient (CLI) | payer MEDICAID, SELFPAY ==
--- NOTE | 2024-11-16 14:00 | XR_ITS ---
Examination: CT right lower extremity without intravenous contrast 2-D sagittal reconstructions. 2-D coronal reconstructions. 3-D reconstructions. Date and time of exam: November 16, 2024, 1410 hours INDICATIONS: Diagnosis right knee unilateral osteoarthritis knee pain several years CTDI: vol (mGy): 36.06 DLP: (mGycm): 1362 Technique: Multiple 1.25 mm axial sections of the right lower extremity without intravenous contrast have been obtained. 2-D sagittal and coronal reconstructions have been obtained. 3-D reconstructions have been obtained. Low dose protocols were performed. One or more of the following dose reduction techniques were used; automated exposure control, adjustment of the mA and/or KV according to patient size, use of iterative reconstruction technique. Findings: Moderate osteopenia Moderate osteoarthritis right hip joint No right hip fracture or dislocation No avascular necrosis Severe narrowing medial joint space right knee Significant osteoarthritis patellofemoral and lateral joint spaces IMPRESSION: Advanced right knee tricompartment osteoarthritis
== END | disposition home or self-care (01) ==
LOC: CCTX 13:57
PROVIDERS: PCP Physician Assistant Medical; Referring Provider Orthopaedic Surgery Adult Reconstructive Orthopaedic Surgery; Visit Provider Orthopaedic Surgery Adult Reconstructive Orthopaedic Surgery
DX: M17.11 Unilateral primary osteoarthritis, right knee (principal)
CPT/HCPCS: 73700

== ENCOUNTER 2024-12-04 07:47 | Outpatient (AMB) | payer MEDICAID, SELFPAY ==
--- NOTE | 2024-12-04 08:07 | PD.ORTHCLVIS ---
Vital signs 12/04/24 08:09 Height 1.63 m Height Method Stated Weight 99.819 kg Weight Measurement Method Standing Scale BMI 37.5 BP 107/73 Blood Pressure Source Automatic Cuff Blood Pressure Location Left Upper Arm Position Sitting Respiration 18 Pulse 82 Pulse Source Monitor Temp 97.3 F Temp Source Temporal Artery Scan Pulse Oximetry (%) 97 Oxygen Delivery Method Room Air Med/Allergies Allergies & Medications Allergies coffee (Coffea arabica) Allergy (Intermediate, Verified 12/04/24 08:08) Gastrointestinal Upset furosemide (From Lasix) Allergy (Intermediate, Verified 12/04/24 08:08) Hypertension milk Allergy (Intermediate, Verified 12/04/24 08:08) Gastrointestinal Upset nitrofurantoin Allergy (Mild, Verified 12/04/24 08:08) VOMIT,LOC BACTRIM Allergy (Uncoded 12/04/24 08:08) Medication Reconciliation diphenhydramine HCl 50 mg capsule 50 mg PO QID #20 caps 11/07/18 [Rx Confirmed 12/04/24] famotidine 20 mg tablet (Pepcid) 20 mg PO BID #10 tabs 11/07/18 [Rx Confirmed 12/04/24] methylprednisolone 4 mg tablets in a dose pack (Medrol (Guido)) 4 mg PO QDAY #21 tabs 11/07/18 [Rx Confirmed 12/04/24] semaglutide 0.25 mg or 0.5 mg (2 mg/3 mL) subcutaneous pen injector (Ozempic) 0.25 mg subcut QWEEK 09/09/23 [History Confirmed 12/04/24] Exam Exam Patient is in no acute distress and is cooperative with the examination today. Breathing is nonlabored. In no respiratory distress. Bilateral extremities were evaluated and demonstrates sensation intact to light touch. Palpable pedal pulses are present. No significant edema is present. Bilateral hips were examined. The patient has no pain with log roll of the hips. Internal rotation to 30 degrees and external rotation to 30 degrees is painless. Negative FADIR. The left knee was examined. The left knee is in [varus] alignment. Range of motion from [0-115] degrees. Knee is stable to varus and valgus as well as AP translation with <5mm. Patient has a [negative] McMurrays. There is [no] pain with patellofemoral compression and [no] crepitus noted. The knee is [tender] to palpation [medially]. The right knee was also examined. The right knee is in [varus] alignment. Range of motion from [0-120] degrees. Knee is stable to varus and valgus as well as AP translation with <5mm. Patient has a [negative] McMurrays. There is [no] pain with patellofemoral compression and [no] crepitus noted. The knee is [tender] to palpation [medially]. Bilateral knee x-rays were reviewed. This demonstrates severe arthritis on the right side. There is valgus arthritis and complete joint space loss laterally Assessment and Plan Problem List (1) Bilateral primary osteoarthritis of knee: Status: Acute Plan: Christel is a pleasant 49-year-old female with bilateral knee pain. She does have history of rheumatoid arthritis. For the right knee, she has failed conservative treatment and has severe valgus arthritis. We thus discussed total knee replacement as a reasonable option. For the left side, she would like a cortisone injection. She has had over 6 injections and has failed conservative treatment and thus we will proceed with a right total knee replacement We will stop her rinvoq 10 days before surgery. The nature and purpose of the total knee replacement, alternative method(s) of treatment, the material risks involved, and the possibility of complications were fully explained to the patient. The patient does NOT have any of the following contraindications to TKA: - Active infection of the knee joint, OR - Active systemic bacteremia, OR - Active skin infection or open wound at surgical site, OR - Neuropathic arthritis, OR - Severe, rapidly progressive neurological disease, OR - Severe medical condition that makes risks of surgery outweigh the potential benefit The patient was told the most common risks and complications associated with a total knee replacement include, but are not limited to: blood clots in the leg, fatal pulmonary embolism, dislocation of the prosthesis, intraoperative and postoperative fractures of the femur or tibia, infection, failure of the prosthesis or grafting materials, complications from anesthesia, reactions to blood transfusions, postoperative leg length inequality, instability of the knee replacement, nerve damage or injury, vascular injury, delayed wound healing, infection, other injury or even . In addition, there are risks associated with anesthesia given during this operation. Also, the patient was told that after undergoing a total knee replacement there may still be persistent pain or disability. The patient was informed that the success of this operation in part depends upon the mechanical devices which are going to be implanted and that these devices can fail or malfunction, and may need to be repaired or replaced and there are no guarantees as to the longevity of this device or its parts and that it or its parts could fail prematurely. The patient was also notified that during the course of surgery, there may be a need to use bone graft from donors, and that any bone graft used will be carefully screened for communicable diseases, including AIDS, hepatitis, Abdi-Creutzfeldt, or other diseases, but despite the screening procedures, there is a small chance that they could contract one of these diseases. Finally, the patient was asked to follow completely and fully with all advice and recommended treatments, and that recovery and ultimate outcome are affected by their compliance with recommended treatment. We discussed the risks, benefits and treatment alternatives, and the patient is interested in proceeding with surgery. We will try to set this up as expeditiously as possible. Office Procedures GNS Level of Care Nursing/Assessment Patient Status: Established Patient Nursing Assessment/Reassesment: Medication Reconciliation, Update PMH in EMR and Vital Signs Coordination of Care: Complex Care and Chronic Disease 1-5, Education Complex Pt/Fam, Consent,records obtained, informed consent, Results/Orders obtained and Staff clarify orders Established Patient Charge Established Patient Point Assignment: 95 Established Patient Point Charge: EP Level 3 (80-115) MA Intake Visit Data Collection New Patient or Established: Established Patient (seen at [facility] within 3 years) Reason for Visit:: PRE OP R TKA Seen by Clinical Staff ONLY (RN/MA): No Verbal consent obtained for Telemed visit?: No Occupational Therapy Supervisor Required: No PCP or OBGYN visit in last 3 months: Yes Hx Now: No Do You Feel Safe at Home: Yes Authorities Contacted: N/A Questionairres Past Medical History Past Medical History Have you ever been diagnosed with any of the following: Cardiology Problems Congestive Heart Failure: No Respiratory Problems Chronic Obstructive Pulmonary Disease (COPD): No Smoking: No Smoking Exposure: No Genital/Urinary Problems Renal Disease: No Endocrine Problems Diabetes Mellitus Type 1: No Diabetes Mellitus Type 2: No Subjective Visit Visit for: follow up visit and knee (RIGHT) Immunization / Flu Flu Vaccine in the Last 12 Months: No Flu Vaccine Exclusion Criteria: Already Received History of Present Illness Chief complaint: 3 MONTH KNEE INJECTIONS Patient is a 49-year-old female with bilateral knee pain worse on the right. She has a history of rheumatoid arthritis the last injection was 3 months ago. She would like new injections today of the left knee. She reports the right knee has significantly progressed. She would like to get this replaced. The last injections are no longer working. She has had multiple injections in the past including over 6 as well as physical therapy and anti-inflammatories. She has lost over 40 pounds. She is on Rinvoq for her rheumatology meds Personal History Red flag PMH: BMI BMI Counceling provided: Yes Additional comments: WALKER WAS GIVEN TO PATIENT SX FOR DEC 21 R TKA Pain Pain level (0-10): 8 Pain duration: CONSTANT Pain location: inside (medial), outside (lateral) and anterior Pain quality: sharp, dull and aching Pain timing: increases with activity Associated signs & symptoms: none Ambulatory data Ambulatory device: walker (GIVEN FOR SX) Treatments Number of previous injections: 3 Improvement with previous injections: No Improvement with PT: No Improvement with NSAIDS: no Review of Systems Review of Systems: All systems negative unless otherwise noted in HPI.
[2024-12-04 08:09] VITALS: BP 107/73; PULSE 82; RESP 18; TEMP 36.3; O2SAT 97; BMI 37.5
== END 2024-12-04 08:36 | disposition home or self-care (01) ==
PROVIDERS: PCP Physician Assistant Medical; Referring Provider Physician Assistant Medical; Supervising Provider Orthopaedic Surgery Adult Reconstructive Orthopaedic Surgery; Visit Provider Orthopaedic Surgery Adult Reconstructive Orthopaedic Surgery
DX: M25.562 Pain in left knee (principal); M25.561 Pain in right knee; M17.0 Bilateral primary osteoarthritis of knee
CPT/HCPCS: 99213; G0463

== ENCOUNTER → 2024-12-13 | Outpatient (CLI) | payer MEDICAID, SELFPAY ==
--- NOTE | 2024-12-13 14:13 | XR_ITS ---
Examination: CT right lower extremity, without contrast. 2-D sagittal reconstructions. 2-D coronal reconstructions. 3-D reconstructions. Date and time of exam: December 13, 2024, 1425 hours INDICATIONS: Diagnosis unilateral primary osteoarthritis right knee right knee pain several years CTDI: vol (mGy): 15.5 DLP: (mGycm): 1059 Technique: Multiple 1.25 mm axial sections of the right lower extremity without intravenous contrast have been obtained. 2-D sagittal and coronal reconstructions have been obtained. 3-D reconstructions have been obtained. Low dose protocols were performed. One or more of the following dose reduction techniques were used; automated exposure control, adjustment of the mA and/or KV according to patient size, use of iterative reconstruction technique. Findings: Mild to moderate right hip osteoarthritis No hip fracture or dislocation Advanced right knee tricompartment osteoarthritis including 12 mm chronic lateral subluxation patella No fracture No avascular necrosis IMPRESSION: Advanced right knee tricompartment osteoarthritis
== END | disposition home or self-care (01) ==
LOC: CDIM 14:05
PROVIDERS: PCP Physician Assistant Medical; Referring Provider Orthopaedic Surgery Adult Reconstructive Orthopaedic Surgery; Visit Provider Orthopaedic Surgery Adult Reconstructive Orthopaedic Surgery
DX: M17.11 Unilateral primary osteoarthritis, right knee (principal)
CPT/HCPCS: 73700

== ENCOUNTER 2024-12-21 08:15 | Day surgery (SDC) | payer MEDICAID, SELFPAY ==
[2024-12-20 07:31] VITALS: BMI 37.5
[2024-12-20 08:49] LABS: Basophils # (Auto) 0.1 Thou/mm3 (0.0-0.2); Basophils % (Auto) 1 % (0-2.5); Eosinophils # (Auto) 0.1 Thou/mm3 (0.0-0.5); Eosinophils % (Auto) 2 % (0-10); Hematocrit 37.8 % (36.0-46.0); Hemoglobin 13.0 g/dL (12.0-16.0); Immature Granulocytes Auto 0.04 Thou/mm3 (0.00-0.00); Lymphocytes # (Auto) 1.8 Thou/mm3 (1.0-4.8); Lymphocytes % (Auto) 23 % (10-50); Mean Corpuscular HGB Conc 34.4 g/dl (31.0-37.0); Mean Corpuscular Hemoglobin 31.0 pg (25.0-35.0); Mean Corpuscular Volume 90 fL (80-100); Monocytes # (Auto) 1.0 Thou/mm3 (0.0-0.8); Monocytes % (Auto) 13 % (0-12); Neutrophils # (Auto) 4.8 Thou/mm3 (1.8-7.7); Neutrophils % (Auto) 62 % (37-80); Nucleated Red Blood Cell # 0.00 Thou/mm3 (0.00-0.00); Nucleated Red Blood Cell % 0 /100 WBC (0); Platelet Count 336 Thou/mm3 (140-440); RDW Standard Deviation 42.8 fL (36.4-46.3); Red Blood Count 4.20 Miln/mm3 (4.00-5.20); White Blood Count 7.7 Thou/mm3 (3.6-11.0)
[2024-12-20 08:56] LABS: INR 1.0 (0.9-1.3); Partial Thromboplastin Time 29.4 Seconds (22.0-36.0); Prothrombin Time 10.2 Seconds (9.0-12.2)
[2024-12-20 09:06] LABS: Anion Gap 10 (7-16); BUN/Creatinine Ratio 16 Ratio (12-20); Blood Urea Nitrogen 13 mg/dL (9-23); Calcium 9.5 mg/dL (8.3-10.6); Carbon Dioxide 26.9 mMol/L (20.0-31.0); Chloride 106 mMol/L (98-107); Creatinine (Component) 0.8 mg/dL (0.6-1.3); Estimated Creatinine Clearance 99.4 mL/min (>60); Glucose 90 mg/dL (74-106); Osmolality,Calculated 285 (275-295); Potassium 4.2 mMol/L (3.4-5.1); Sodium 143 mMol/L (136-145); eGFR > 60 See Note
[2024-12-21] VITALS (12 sets, daily range): BP systolic 108–149; BP diastolic 58–99; PULSE 77–116; RESP 13–20; TEMP 36.2–36.5; O2SAT 94–100; BMI 36.9
--- NOTE | 2024-12-21 09:02 | SUR.PREOP ---
Patient expressed gratitude for prayer before their procedure.
--- NOTE | 2024-12-21 14:23 | ESOP_ITS ---
Date of Procedure 12/21/24 Pre Op Diagnosis right knee osteoarthritis Post Op Diagnosis right knee osteoarthritis Procedure right total knee arthroplasty cecilia Findings full thickness cartilage loss and osteophytes Procedure Description Indication: The patient has a long history of right knee pain. X-rays show degenerative arthritis involving the knee. Over the past several years the patient has had increasing pain, progressive limitation in function. He has failed conservative measures including activity modification, physical therapy, injections, anti- inflammatories, and assistive devices. After a lengthy discussion of the risks and benefits, the patient presents now for total knee replacement. The nature and purpose of the total knee replacement, alternative method(s) of treatment, the material risks involved, and the possibility of complications were fully explained to the patient. The patient was told the most common risks and complications associated with a total knee replacement include, but are not limited to blood clots in the leg, fatal pulmonary embolism, dislocation of the prosthesis, intraoperative and postoperative fractures of the femur or tibia, infection, failure of the prosthesis or grafting materials, complications from anesthesia, reactions to blood transfusions, postoperative leg length inequality, instability of the knee replacement, nerve damage or injury, vascular injury, delayed wound healing, infections, other injury or even . In addition, there are risks associated with anesthesia given during this operation, temporary or permanent numbness on the skin lateral to the incision can be a complication unique to total knee surgery, and kneeling can be painful after knee replacement surgery. Also, the patient was told that after undergoing a total knee replacement there may still be pain or disability. We discussed with the patient that we will be using a robot-assisted technology. We discussed that there is a possibility of converting to manual instrumentation. The patient was informed that the success of this operation in part depends upon the mechanical devices which are going to be implanted and that these devices can fail or malfunction, and may need to be repaired or replaced and there are no guarantees as to the longevity of this device or its part and that it or its parts could fail prematurely. Finally, the patient was asked to follow completely and fully with all advice and recommended treatments, and that recovery and ultimate outcome are affected by their compliance with recommended treatment. Surgical technique: Patient was marked and consented in the pre-operative area. The patient was brought to the operating room and placed on the operating table in a supine position. Prior to positioning, a timeout procedure was performed between the surgeon, the anesthesiologist, and the nursing staff where the patient and the operative side were identified and confirmed. After adequate general anesthetic was obtained, the right lower extremity was prepped and draped in the usual sterile fashion. A weight based dose of Cefazolin were administered within 1 hour prior to incision. The robot was preregistered and calibrated before the incision. The extremity was exsanguinated with an esmarch badge and tourniquet inflated to 250mmHg. A midline incision was made. A median parapatellar arthrotomy was made. The patella was subluxed laterally. A medial release was performed to expose the medial tibia. His femoral and tibial pins were placed through an intra incisional manner for both cases. Every effort was made to ensure that the distalmost aspect of the pin was hung in the second cortex. The arrays were then tightened several times to ensure that it was fixed for the remainder of the case. Both femoral and tibial checkpoints were then placed. We then went through the registration process of the bone. We then assessed the knee deformity and attempted to correct it. We also used the robot to aid in judging laxity in both extension and flexion. Final based on laxity and alignment we changed the preoperative assessment to obtain proper proper implant positioning and to correct deformity. Attention was then placed to the tibia. We made a tibial cut using the robot ensuring that both the MCL and the patella tendon were protected with retractors. We then went to the femur and made the posterior cut followed by the anterior cut and the anterior chamfer. The bone was then removed and we made a distal femur cut and a posterior chamfer cut. We verified all cuts. A trial reduction was performed with a size 4 femoral component and a size 4 keeled tibial component. T The patella tracked centrally, and no lateral retinacular release was necessary. The trial implants were removed. The arrays, pins, and checkpoints were all removed. We performed a verification that all pins were removed. The cut bone surfaces were lavaged. A size 4 right femoral component, a size 4 keeled tibial component were impacted into position. The knee was felt to be well balanced in the sagittal and coronal plane. The final 4x12 mm cruciate- substituting articular insert was impacted into the tibial tray. The knee was brought out to full extension, flexed up to 120 degrees. It was stable to varus and valgus stress and appropriately balanced in flexion and extension. The wounds were copiously irrigated following deflation of tourniquet. The medial retinaculum was reapproximated with #1 vicryl and quill. The subcutaneous tissues were closed with 0 and 2-0 interrupted Vicryl. The skin was closed with 3-0 Monofilament V loc suture. A sterile dressing was applied. The patient was transferred to a bed and brought to recovery in stable condition. The patient tolerated the procedure well. There were no intraoperative complications. Sponge and needle counts were correct times 2. As the attending surgeon, I attest I was present and performed the entire operation. Grafts/Implants Size 4 CR Femur Size 4 Tibia 12mm poly CS Anesthesia spinal Implants Implants comments: frances Pathology / specimen None Pathology comment: none Estimated Blood Loss 150 Condition Stable Disposition same day Surgeon Norm Hurtado MD Surgical Staff Operation Date: 12/21/24 12:45 Case Staff Anesthesiologist: Byron Bran RN First Assistant: Divine Sneed
--- NOTE | 2024-12-21 14:31 | XR_ITS ---
EXAMINATION: Right knee 2 views TECHNIQUE: AP lateral right knee 2 views Date and time: December 21, 2024, 1510 hours INDICATIONS: Postop knee replacement. FINDINGS: Total right knee arthroplasty. Satisfactory alignment Moderate osteopenia IMPRESSION: Total right knee arthroplasty with satisfactory alignment
--- NOTE | 2024-12-21 14:35 | SUR.PHASEI ---
pt received from OR in recovery bay 3. pt awake and alert, breathing unlabored on oxymask 8l. v/s stable. pt dressing to right lower extremity cdi. report received from Carrillo HANSON and [facility]TOINE.
[2024-12-21] MEDS: HYDROmorphone INJ 2 MG/ML VIAL 0.4 MG IVP ×2 (14:52→15:03)
[2024-12-21] MEDS: ACETAMINOPHEN IVPB 1,000 MG/100 ML VIAL 250 MG IV (14:55)
--- NOTE | 2024-12-21 15:20 | SUR.PHASEII ---
pt able to tolerate oral fluids without difficulty swallowing or nausea/vomiting
[2024-12-21] MEDS: fentaNYL CIT INJ 50 mCg/ML AMP 2ML 25 MCG IVP ×2 (15:33→15:53)
--- NOTE | 2024-12-21 17:15 | SUR.PHASEII ---
pt awake and alert, breathing unlabored on room air. v/s stable. pt dressing to right lower extremity cdi. pt cleared by physical therapist Lux. pt able to ambulate to [facility] bathroom using walker. d/c instructions given with s/o Jose and daughter in room, all questions answered. pt d/c via wheelchair with all belongings.
== END 2024-12-21 17:15 | disposition home or self-care (01) ==
PROVIDERS: PCP Physician Assistant Medical; Referring Provider Orthopaedic Surgery Adult Reconstructive Orthopaedic Surgery; Visit Provider Orthopaedic Surgery Adult Reconstructive Orthopaedic Surgery
PROC: (CPT 20985; principal; 2024-12-21 12:30)
DX: M17.11 Unilateral primary osteoarthritis, right knee (principal); M25.761 Osteophyte, right knee
CPT/HCPCS: 20985; 27447; 36415; 73560; 80048; 85025; 85610; 85730; 97162; A4217; A4649; C1713; C1776; J0131; J0690; J1100; J1171; J2250; J2371; J2405; J2704; J2765; J3010; J3490; A4648

== ENCOUNTER 2024-12-31 00:22 | Emergency (ER) | payer MEDICAID, SELFPAY ==
[2024-12-31 00:24] VITALS: BP 122/79; PULSE 100; RESP 20; TEMP 36.6; O2SAT 98; BMI 36.8
--- NOTE | 2024-12-31 00:39 | XR_ITS ---
Examination: Duplex scan of the lower extremity, unilateral right Date and time of exam: December 31, 2024, 0438 hours INDICATIONS: Right leg pain post knee replacement December 21, 2024 Technique: Duplex scan of the extremity veins using B-mode/grayscale imaging and Doppler spectral analysis and color flow Attention is directed to internal echogenicity, compression and augmentation involving these veins, color flow assessment, spectral analysis Findings: Major deep venous structures in the extremity demonstrate normal course and caliber. There is no evidence of deep vein thrombosis. Normal color flow and spectral analysis Impression: Negative for DVT..
[2024-12-31] MEDS: MORPHINE SULF INJ 4 MG/ML VIAL IM (00:58)
--- NOTE | 2024-12-31 04:35 | PD.EDRME ---
Rapid Medical Screening Exam RME Arrival date/time: 12/31/24 00:22 This is a case of 49-year-old female who came in in the emergency room due to right calf tenderness patient had surgery on the right knee last week and started to have pain and swelling on the right lower extremities persistence of the symptoms thus patient decided to start sought consult here in the emergency room Chief Complaint: Extremity Injury, Lower Time Seen by Provider: 12/31/24 00:38 Vital signs: Vital Signs Temperature 97.9 F 12/31/24 00:24 Pulse Rate 100 12/31/24 00:24 Respiratory Rate 20 12/31/24 00:24 Blood Pressure 122/79 12/31/24 00:24 Pulse Oximetry (%) 98 12/31/24 00:24 Oxygen Delivery Method Room Air 12/31/24 00:24 Exam: Tenderness on the right calf with mild swelling ROM intact neurovascular intact Clinical Impression: Right lower extremities pain
--- NOTE | 2024-12-31 05:15 | PD.EDLOWEX ---
Lower Extremity Injury RME/HPI General Chief Complaint: Extremity Injury, Lower Stated Complaint: R LOWER LEG Time Seen by Provider: 12/31/24 00:38 Arrival date/time: 12/31/24 00:22 RME / HPI RME / HPI Narrative: 12/31/24 00:22 This is a case of 49-year-old female who came in in the emergency room due to right calf tenderness patient had surgery on the right knee last week and started to have pain and swelling on the right lower extremities persistence of the symptoms thus patient decided to start sought consult here in the emergency room --------- Dr. Ng?s Main ED Evaluation: 49yo female who had a recent right knee replacement by Dr. Hurtado presents to the ED for a chief complaint of worsening RLE pain and swelling x Tuesday. Patient states she started having increased pain and swelling to her right knee and calf on Tuesday, reporting it got significantly worse yesterday. Patient states she ran out of her pain medication at home and has been taking Tylenol without improvement. Denies any fever, chills, or any other associated symptoms. Patient's next follow-up appointment with Dr. Hurtado is on 01/08/25. Related Data Home Medications ?Medication ?Instructions ?Recorded ?Confirmed cholecalciferol (vitamin D3) 1,250 1,250 mcg PO QWEEK 12/20/24 12/21/24 mcg (50,000 unit) capsule estradiol 0.0375 mg/24 hr weekly 0.0375 mg topical .twice a week 12/20/24 12/21/24 transdermal patch (Climara) fluconazole 100 mg tablet 100 mg PO DAILY 12/20/24 12/21/24 folic acid 1 mg tablet 1 mg PO DAILY 12/20/24 12/21/24 loratadine 10 mg tablet 10 mg PO DAILY 12/20/24 12/21/24 magnesium glycinate 400 mg PO HS 12/20/24 12/21/24 meloxicam 15 mg tablet 15 mg PO DAILY 12/20/24 12/21/24 methotrexate sodium 2.5 mg tablet 15 mg PO QWEEK 12/20/24 12/21/24 omega-3 360 mn-mrp-ace-fish oil 1 cap PO QDAY 12/20/24 12/21/24 1,200 mg capsule,delayed release (Fish Oil) progesterone micronized 100 mg 100 mg PO HS 12/20/24 12/21/24 capsule riboflavin (vitamin B2) 100 mg 100 mg PO QDAY 12/20/24 12/21/24 tablet (Vitamin B-2) tirzepatide (weight loss) 10 10 mg subcut QWEEK 12/20/24 12/20/24 mg/0.5 mL subcutaneous pen injector (Zepbound) upadacitinib 15 mg tablet,extended 15 mg PO QDAY 12/20/24 12/20/24 release 24 hr (Rinvoq) Held on 12/21/24. Instructions: Resume on 01/11/25. Previous Rx's ?Medication ?Instructions ?Recorded acetaminophen 500 mg tablet 1,000 mg (2 x 500 mg) PO Q6H PRN 12/21/24 (Acetaminophen Extra Strength) pain #90 tabs aspirin 81 mg tablet,delayed 81 mg PO BID #60 tabs 12/21/24 release doxycycline hyclate 100 mg tablet 100 mg PO BID #14 tabs 12/21/24 gabapentin 300 mg capsule 300 mg PO .qhs #30 caps 12/21/24 oxycodone 5 mg tablet 5 mg PO Q6H PRN pain #28 tabs 12/21/24 sennosides 8.6 mg-docusate sodium 1 tab-cap PO QDAY #30 tabs 12/21/24 50 mg tablet (Senna-S) hydrocodone 10 mg-acetaminophen 1 tab PO Q6H PRN pain #10 tabs 12/31/24 325 mg tablet Allergies Allergy/AdvReac Type Severity Reaction Status Date / Time coffee (Coffea arabica) Allergy Intermediate Gastrointestinal Verified 12/31/24 00:29 Upset furosemide (From Lasix) Allergy Intermediate Hypertensio Verified 12/31/24 00:29 n milk Allergy Intermediate Gastrointestinal Verified 12/31/24 00:29 Upset nitrofurantoin Allergy Mild VOMIT,LOC Verified 12/31/24 00:29 Review of Systems Review of Systems Systems Reviewed: All systems reviewed, normal except as documented Past Medical History Past Medical History NEUROLOGIC: Positive Neurological Disorders and Migraine; Negative Seizures CARDIAC: Negative Cardiac Disorders or Congestive Heart Failure RESPIRATORY: Negative Chronic Obstructive Pulmonary Disease (COPD), Smoking or Smoking Exposure GASTROINTESTINAL: Positive Gastrointestinal Disorders and Obesity GENITOURINARY: Negative Genitourinary Disorders or Renal Disease REPRODUCTIVE: Positive Previous Pregnancies; Negative Endometriosis, Pelvic Inflammatory Disease or Uterine Prolapse MUSCULOSKELETAL: Positive Musculoskeletal Disorders, Arthritis and Rheumatoid Arthritis ENDOCRINE: Negative Endocrine Disorders, Diabetes Mellitus Type 1 or Diabetes Mellitus Type 2 HEMATOLOGIC: Negative Blood Disorders OTHER HISTORY: Positive Anesthesia Reactions (stated wakes up in the middle of surgery) and Chicken Pox; Negative Hospitalization, Autoimmune Disease, Shingles, Blood Transfusions, Blood Transfusion Reaction or Cancer Family History FAMILY HISTORY: Positive Family Cardiac Disorders, Family Cancer and Family Surgery; Negative Family Psychiatric Problems, Family Respiratory Disorders, Family Gastrointestinal Problems or Family Anesthesia Reaction (stated wakes up in the middle of surgery) Surgical History SURGICAL: Positive Arthroscopy (Right knee meniscectomy), Tubal Ligation and Section (x3) Social History SMOKING STATUS: Never smoker ED Exam Narrative Physical exam: Generally patient is alert and in no obvious distress, heart regular rate and rhythm, lungs clear to auscultation equal bilaterally, abdomen soft bowel sounds present nondistended nontender, extremities show surgical scar over the right knee from the total right knee replacement. No discharge from the surgical wound. No overlying erythema. Mild right proximal calf tenderness and swelling. Mild overlying contusion. Course Quality Measures none Orders Category Date Time Status US venous doppler LE RT Stat Exams 12/31/24 00:39 Taken Morphine* Inj Med 12/31/24 00:39 Discontinued 4 mg IM X1 ONE Vital Signs Vital signs: Vital Signs Temperature 97.9 F 12/31/24 00:24 Pulse Rate 100 12/31/24 00:24 Respiratory Rate 20 12/31/24 00:24 Blood Pressure 122/79 12/31/24 00:24 Pulse Oximetry (%) 98 12/31/24 00:24 Oxygen Delivery Method Room Air 12/31/24 00:24 Extremity Injury, Lower MDM Narrative MDM Narrative:: Scribe Attestation: 12/31/24 Tiarra Rodriguez am scribing for and in the presence of Dr. Ng. Doppler ultrasound to the right lower extremity showed no evidence of deep venous thrombosis. Patient will be discharged in stable condition to follow-up as scheduled in [address] Hurtado her orthopedic surgeon. Patient data External records reviewed:: [facility] previous records (Per chart review, patient has no relevant previous ED visits.) Clinical information provided by:: patient Social determinants that could affect healthcare access:: none Patient has the following chronic illnesses:: none How is presenting disease/condition affected by chronic disease/condition?: no chronic disease Evaluation data The following diagnostics were reviewed and interpreted by me:: radiology exam(s) Lab and/or radiology exams considered but not ordered:: none Interpretation Summary: See MDM Medications / Prescriptions Medications or Prescriptions considered but not ordered:: none Medication administrations:: Medication Administration History Discontinued Medications Morphine Sulfate (Morphine Sulf Inj 4 Mg/Ml Vial) 4 mg IM X1 ONE Stop: 12/31/24 00:40 Last Admin: 12/31/24 00:58 Dose: 4 mg Documented By: JOE see above Consultations Consultation(s) initiated? (list below): No Diagnosis Extremity Injury, Lower Differential Diagnosis: other (See MDM) Most likely diagnosis given after review of the tests above:: see clinical impression below Admission Indicated Admission indicated?: not indicated Admission Request Was there a request for admission?: No Disposition Plan Disposition Plan: Discharge Discharge Attestation Discharge Attestation: The patient and all family members were given an opportunity to ask questions and understood the discharge instructions. Discharge instructions specifically effects, indications for sooner follow up or return to the emergency department, and the expected course of current diagnosis. Patient condition: Stable Discharge Plan Plan Patient Disposition: HOME (Self Care) Prescriptions/Referrals Prescriptions/Med Rec: New hydrocodone-acetaminophen 10-325 mg tablet 1 tab PO Q6H MDD 4 PRN (Reason: pain) Qty: 10 0RF No Action cholecalciferol (vitamin D3) 1,250 mcg (50,000 unit) capsule 1,250 mcg PO QWEEK Patient Comments: TAKE 1 CAPSULE BY MOUTH ONE TIME PER WEEK meloxicam 15 mg tablet 15 mg PO DAILY Patient Comments: TAKE 1 TABLET BY MOUTH EVERY DAY FOR 90 DAYS methotrexate sodium 2.5 mg tablet 15 mg PO QWEEK Patient Comments: TAKE 6 TABLETS BY MOUTH ONCE A WEEK progesterone micronized 100 mg capsule 100 mg PO HS Patient Comments: TAKE 1 CAPSULE BY MOUTH EVERY DAY AT BEDTIME FOR 90 DAYS folic acid 1 mg tablet 1 mg PO DAILY Patient Comments: TAKE 1 TABLET BY MOUTH EVERY DAY fluconazole 100 mg tablet 100 mg PO DAILY Patient Comments: TAKE 1 TABLET BY MOUTH EVERY DAY Rinvoq 15 mg tablet extended release 24 hr 15 mg PO QDAY omega 5-zxp-epu-fish oil [Fish Oil] 360-1,200 mg capsule,delayed release(DR/EC) 1 cap PO QDAY magnesium glycinate 100 mg magnesium capsule 400 mg PO HS riboflavin (vitamin B2) [Vitamin B-2] 100 mg tablet 100 mg PO QDAY estradiol [Climara] 0.0375 mg/24 hr patch weekly 0.0375 mg topical .twice a week Zepbound 10 mg/0.5 mL pen injector 10 mg subcut QWEEK loratadine 10 mg tablet 10 mg PO DAILY Patient Comments: TAKE 1 TABLET BY MOUTH EVERY DAY sennosides-docusate sodium [Senna-S] 8.6-50 mg tablet 1 tab-cap PO QDAY Qty: 30 0RF aspirin 81 mg tablet,delayed release (DR/EC) 81 mg PO BID Qty: 60 0RF acetaminophen [Acetaminophen Extra Strength] 500 mg tablet 1,000 mg PO Q6H MDD 1000mg PRN (Reason: pain) Qty: 90 0RF gabapentin 300 mg capsule 300 mg PO .qhs Qty: 30 0RF doxycycline hyclate 100 mg tablet 100 mg PO BID Qty: 14 0RF oxycodone 5 mg tablet 5 mg PO Q6H MDD 20 PRN (Reason: pain) Qty: 28 0RF Rx Instructions: z96.65 Referrals: Michelle Doll PA-C [Primary Care Provider] - In 1 week Problem List Clinical Impression: Leg pain, right Patient/Caregiver Discharge Instructions Additional Instructions: Elevate right leg is much as possible. [place] as prescribed. You may also take Tylenol 650 mg every 6 hours as needed for pain. Keep your follow-up appoint with Dr. Hurtado. Return to ER as needed or if condition worsens. Print Language: Tajik Stand Alone Forms: Michelle Award Info., Patient Portal Info Letter
--- NOTE | 2024-12-31 05:25 | PRELIM_ITS ---
Right lower extremity venous Doppler ultrasound. December 31, 2024 at 0439 hours Clinical history: Deep vein thrombosis. Technique: Duplex scan of the right lower extremity deep venous systems was performed utilizing 2D grayscale imaging, Doppler spectral analysis and color flow Doppler and with compression. Comparison: No prior study is available for comparison. Findings: Mirza scale, color flow and spectral Doppler evaluation of the right lower extremity deep venous system was performed. The greater saphenous vein confluence, common femoral, femoral, popliteal and calf veins are patent and compressible. Normal augmentation and respiratory variation are noted. There is no evidence of occlusive or nonocclusive thrombus. There are no fluid collections. Impression: No sonographic evidence of deep venous thrombosis in the right lower extremity. Report Electronically Signed By: Richard Joy 12/31/2024 5:24:58 AM [EST]
== END 2024-12-31 05:47 | disposition home or self-care (01) ==
PROVIDERS: Emergency Provider Emergency Medicine; PCP Physician Assistant Medical
DX: S80.01XA Contusion of right knee, initial encounter (principal); M79.604 Pain in right leg; X58.XXXA Exposure to other specified factors, initial encounter; Z96.651 Presence of right artificial knee joint
CPT/HCPCS: 93971; 96372; 99283; J2270

== ENCOUNTER 2025-01-08 08:07 | Outpatient (AMB) | payer MEDICAID, SELFPAY ==
--- NOTE | 2025-01-08 08:30 | ORTHONT_ITS ---
Vital signs 01/08/25 08:31 Height 1.63 m Height Method Measured Weight 98.628 kg Weight Measurement Method Standing Scale BMI 37.1 BP 124/80 Blood Pressure Source Automatic Cuff Blood Pressure Location Left Upper Arm Position Sitting Respiration 18 Pulse 93 Pulse Source Monitor Temp 97.7 F Temp Source Temporal Artery Scan Pulse Oximetry (%) 97 Oxygen Delivery Method Room Air Med/Allergies Allergies & Medications Allergies coffee (Coffea arabica) Allergy (Intermediate, Verified 01/08/25 08:32) Gastrointestinal Upset furosemide (From Lasix) Allergy (Intermediate, Verified 01/08/25 08:32) Hypertension milk Allergy (Intermediate, Verified 01/08/25 08:32) Gastrointestinal Upset nitrofurantoin Allergy (Mild, Verified 01/08/25 08:32) VOMIT,LOC Medication Reconciliation cholecalciferol (vitamin D3) 1,250 mcg (50,000 unit) capsule 1,250 mcg PO QWEEK 12/20/24 [History Confirmed 01/08/25] estradiol 0.0375 mg/24 hr weekly transdermal patch (Climara) 0.0375 mg topical .twice a week 12/20/24 [History Confirmed 01/08/25] fluconazole 100 mg tablet 100 mg PO DAILY 12/20/24 [History Confirmed 01/08/25] folic acid 1 mg tablet 1 mg PO DAILY 12/20/24 [History Confirmed 01/08/25] loratadine 10 mg tablet 10 mg PO DAILY 12/20/24 [History Confirmed 01/08/25] magnesium glycinate 400 mg PO HS 12/20/24 [History Confirmed 01/08/25] meloxicam 15 mg tablet 15 mg PO DAILY 12/20/24 [History Confirmed 01/08/25] methotrexate sodium 2.5 mg tablet 15 mg PO QWEEK 12/20/24 [History Confirmed 01/08/25] omega-3 360 pb-eau-wxf-fish oil 1,200 mg capsule,delayed release (Fish Oil) 1 cap PO QDAY 12/20/24 [History Confirmed 01/08/25] progesterone micronized 100 mg capsule 100 mg PO HS 12/20/24 [History Confirmed 01/08/25] riboflavin (vitamin B2) 100 mg tablet (Vitamin B-2) 100 mg PO QDAY 12/20/24 [Hi story Confirmed 01/08/25] tirzepatide (weight loss) 10 mg/0.5 mL subcutaneous pen injector (Zepbound) 10 mg subcut QWEEK 12/20/24 [History Confirmed 01/08/25] upadacitinib 15 mg tablet,extended release 24 hr (Rinvoq) 15 mg PO QDAY 12/20/24 [History Confirmed 01/08/25] Held on 12/21/24. Instructions: Resume on 01/11/25. acetaminophen 500 mg tablet (Acetaminophen Extra Strength) 1,000 mg (2 x 500 mg) PO Q6H PRN pain #90 tabs 12/21/24 [Rx Confirmed 01/08/25] aspirin 81 mg tablet,delayed release 81 mg PO BID #60 tabs 12/21/24 [Rx Confirmed 01/08/25] doxycycline hyclate 100 mg tablet 100 mg PO BID #14 tabs 12/21/24 [Rx Confirmed 01/08/25] gabapentin 300 mg capsule 300 mg PO .qhs #30 caps 12/21/24 [Rx Confirmed 01/08/25] oxycodone 5 mg tablet 5 mg PO Q6H PRN pain #28 tabs 12/21/24 [Rx Confirmed 01/08/25] sennosides 8.6 mg-docusate sodium 50 mg tablet (Senna-S) 1 tab-cap PO QDAY #30 tabs 12/21/24 [Rx Confirmed 01/08/25] cyclobenzaprine 5 mg tablet 5 mg PO TID PRN muscle spasm #21 tabs 01/08/25 [Rx] Exam Exam Patient is in no acute distress and is cooperative with the examination today. Breathing is nonlabored. Patient has a normal mood and affect. Bilateral extremities were evaluated and demonstrates sensation intact to light touch. Palpable pedal pulses are present. No significant edema is present. Bilateral hips were examined. The patient has no pain with log roll of the hips. Internal rotation to 30 degrees and external rotation to 30 degrees is painless. Negative FADIR. Right knee was examined today. The right knee is in neutral alignment. The incision is clean dry and intact. Assessment and Plan Problem List (1) Bilateral primary osteoarthritis of knee: Status: Acute Plan: Patient is doing well status post right total knee replacement. We will see her in approximately 4 weeks. She would like refills of pain medication. Of systems currently down so we are working on sending it We will see her back in 4 weeks Office Procedures GNS Level of Care Nursing/Assessment Patient Status: Established Patient Nursing Assessment/Reassesment: Medication Reconciliation, Update PMH in EMR and Vital Signs Coordination of Care: Complex Care and Chronic Disease 1-5, Education Complex Pt/Fam, Consent,records obtained, informed consent and Results/Orders obtained Established Patient Charge Established Patient Point Assignment: 85 Established Patient Point Charge: EP Level 3 (80-115) MA Intake Visit Data Collection New Patient or Established: Established Patient (seen at [facility] within 3 years) Reason for Visit:: 2 WEEK POST OP RT TKA Seen by Clinical Staff ONLY (RN/MA): No Verbal consent obtained for Telemed visit?: No Nuclear Medicine Pet Ct Technologist Required: No PCP or OBGYN visit in last 3 months: Yes Hx Now: No Do You Feel Safe at Home: Yes Authorities Contacted: N/A Questionairres Past Medical History Past Medical History Have you ever been diagnosed with any of the following: Neurological Problems Seizures: No Migraine: Yes Cardiology Problems Congestive Heart Failure: No Respiratory Problems Chronic Obstructive Pulmonary Disease (COPD): No Smoking: No Smoking Exposure: No Stomache/Intestinal Problems Obesity: Yes Genital/Urinary Problems Renal Disease: No Reproductive Problems Endometriosis: No Pelvic Inflammatory Disease: No Previous Pregnancies: Yes Uterine Prolapse: No Musculoskeletal Problems Arthritis: Yes Rheumatoid Arthritis: Yes Endocrine Problems Diabetes Mellitus Type 1: No Diabetes Mellitus Type 2: No Other Problems Hospitalization: No Shingles: No Blood Transfusions: No Blood Transfusion Reaction: No Anesthesia Reactions: Yes (stated wakes up in the middle of surgery) Chicken Pox: Yes Cancer: No Subjective Visit Visit for: follow up visit, post op #1 and knee (RIGHT) Immunization / Flu Flu Vaccine in the Last 12 Months: No Flu Vaccine Exclusion Criteria: Already Received History of Present Illness Chief complaint: 2 WEEK POST OP RT TKA Patient is a 49-year-old female status post right total knee replacement. She is status post knee replacement 2 weeks ago. She is doing well Personal History Red flag PMH: BMI BMI Counceling provided: Yes Additional comments: WALKER WAS GIVEN TO PATIENT SX FOR DEC 21 R TKA Pain Pain level (0-10): 8 Pain duration: CONSTANT Pain location: inside (medial), outside (lateral) and anterior Pain quality: sharp, dull and aching Pain timing: increases with activity Associated signs & symptoms: none Ambulatory data Ambulatory device: walker (GIVEN FOR SX) Treatments Number of previous injections: 3 Improvement with previous injections: No Improvement with PT: No Improvement with NSAIDS: no Review of Systems Review of Systems: All systems negative unless otherwise noted in HPI.
[2025-01-08 08:31] VITALS: BP 124/80; PULSE 93; RESP 18; TEMP 36.5; O2SAT 97; BMI 37.1
== END 2025-01-08 09:01 | disposition home or self-care (01) ==
LOC: HODSRG 08:07
PROVIDERS: PCP Physician Assistant Medical; Referring Provider Physician Assistant Medical; Supervising Provider Orthopaedic Surgery Adult Reconstructive Orthopaedic Surgery; Visit Provider Orthopaedic Surgery Adult Reconstructive Orthopaedic Surgery
DX: Z47.1 Aftercare following joint replacement surgery (principal); Z96.651 Presence of right artificial knee joint; M17.12 Unilateral primary osteoarthritis, left knee; E66.9 Obesity, unspecified; Z68.37 Body mass index [BMI] 37.0-37.9, adult
CPT/HCPCS: 99213; G0463